=== PATIENT | female | born 1965 | race Caucasian/White ===

== ENCOUNTER → 2017-09-08 12:20 | Outpatient (CLI) | payer MEDICARE, MEDICAID, SELFPAY ==
--- NOTE | 2017-09-08 12:25 | RAD_ITS ---
STUDY: X-RAY - CERVICAL SPINE REASON FOR EXAM: Female, 51 years old. Neck pain TECHNIQUE: 3 view(s) of the cervical spine were obtained. COMPARISON: None FINDINGS: Normal anterior atlantoaxial articulation. Normal odontoid process. Normal cervical lordosis. Normal vertebral bodies and endplates. Normal disc space heights. Normal visualized intervertebral neuroforamina. The soft tissue structures are unremarkable. RAD/Cerv Spine 2 or 3 Views IMPRESSION: Normal x-ray examination of the visualized cervical spine. Electronically Signed: Will Strong MD at 7:18 EDT , Service support ,
== END ==
PROVIDERS: Family Provider Internal Medicine; PCP Internal Medicine; Visit Provider Anesthesiology Pain Medicine
DX: M54.2 Cervicalgia (principal)
CPT/HCPCS: 72040

== ENCOUNTER → 2018-03-24 11:50 | Outpatient (CLI) | payer MEDICARE, MEDICAID, SELFPAY ==
[2018-03-24 12:34] LABS: Amphetamine Urine VISTA NEGATIVE (<1000 ng/mL); Barbiturate Urine VISTA NEGATIVE (< 200 ng/mL); Benzodiazepine Urine VISTA NEGATIVE (< 200 ng/mL); Cocaine Urine VISTA NEGATIVE (< 300 ng/mL); Ecstacy Urine VISTA POSITIVE (< 500 ng/mL); Methadone Urine VISTA NEGATIVE (< 300 ng/mL); PCP Urine VISTA NEGATIVE (< 25 ng/mL); THC Urine VISTA NEGATIVE (< 50 ng/mL); Vista UDS pH Range 6
== END ==
PROVIDERS: Family Provider Internal Medicine; PCP Internal Medicine; Referring Provider Anesthesiology Pain Medicine; Visit Provider Anesthesiology Pain Medicine
DX: F11.20 Opioid dependence, uncomplicated (principal)
CPT/HCPCS: 80307

== ENCOUNTER → 2018-06-15 09:33 | Outpatient (CLI) | payer MEDICARE, MEDICAID, SELFPAY ==
[2018-06-15 10:42] LABS: Amphetamine Urine VISTA NEGATIVE (<1000 ng/mL); Barbiturate Urine VISTA NEGATIVE (< 200 ng/mL); Benzodiazepine Urine VISTA NEGATIVE (< 200 ng/mL); Cocaine Urine VISTA NEGATIVE (< 300 ng/mL); Ecstacy Urine VISTA POSITIVE (< 500 ng/mL); Methadone Urine VISTA NEGATIVE (< 300 ng/mL); PCP Urine VISTA NEGATIVE (< 25 ng/mL); THC Urine VISTA NEGATIVE (< 50 ng/mL); Vista UDS pH Range 6
--- OUTSIDE RECORDS SUMMARY | 2018-09-16 21:54 | XMS RPT_ITS ---
:1965 Author Organization OHIP Care Team Providers Name Role Phone Mohsen Majano Attending Unavailable Basali, Ayman Referring Unavailable ZARRABI, ADORE Primary Care Unavailable Basali, Ayman Attending Unavailable Basali, Ayman Referring Unavailable ZARRABI, ADORE Primary Care Unavailable Basali, Ayman Attending Unavailable Basali, Ayman Referring Unavailable ZARRABI, ADORE Primary Care Unavailable Zarrabi, Adore Admitting Unavailable Zarrabi, Adore Attending Unavailable Zarrabi, Adore Primary Care Unavailable Zarrabi, Adore Attending Unavailable Zarrabi, Adore Primary Care Unavailable Zarrabi, Adore Attending Unavailable Zarrabi, Adore Primary Care Unavailable Zarrabi, Adore Admitting Unavailable Zarrabi, Adore Attending Unavailable Zarrabi, Adore Primary Care Unavailable Zarrabi, Adore Admitting Unavailable Zarrabi, Adore Attending Unavailable Zarrabi, Adore Primary Care Unavailable Zarrabi, Adore Attending Unavailable Zarrabi, Adore Primary Care Unavailable Zarrabi, Adore Attending Unavailable Zarrabi, Adore Primary Care Unavailable Zarrabi, Adore Attending Unavailable Zarrabi, Adore Primary Care Unavailable Zarrabi, Adore Admitting Unavailable Zarrabi, Adore Attending Unavailable Zarrabi, Adore Primary Care Unavailable Zarrabi, Adore Attending Unavailable Zarrabi, Adore Primary Care Unavailable Zarrabi, Adore Attending Unavailable Zarrabi, Adore Primary Care Unavailable Zarrabi, Adore Attending Unavailable Zarrabi, Adore Primary Care Unavailable Zarrabi, Adore Attending Unavailable Zarrabi, Adore Primary Care Unavailable Zarrabi, Adore Attending Unavailable Zarrabi, Adore Primary Care Unavailable Zarrabi, Adore Admitting Unavailable Zarrabi, Adore Attending Unavailable Zarrabi, Adore Primary Care Unavailable Zarrabi, Adore Attending Unavailable Zarrabi, Adore Primary Care Unavailable Zarrabi, Adore Admitting Unavailable Zarrabi, Adore Attending Unavailable Zarrabi, Adore Primary Care Unavailable Zarrabi, Adore Admitting Unavailable Zarrabi, Adore Attending Unavailable Zarrabi, Adore Primary Care Unavailable Zarrabi, Adore Attending Unavailable Zarrabi, Adore Primary Care Unavailable Zarrabi, Adore Admitting Unavailable Zarrabi, Adore Attending Unavailable Zarrabi, Adore Primary Care Unavailable Zarrabi, Adore Attending Unavailable Zarrabi, Adore Primary Care Unavailable PROBLEMS PROBLEMS DATE TYPE CONDITION / CODE ATTENDING STATUS SOURCE 06/15/2018 Unknown F11.20 - Opioid Basali, Ayman Active [place] dependence, Community uncomplicated / Hospital F11.20(ICD-10) Repository PROCEDURES PROCEDURES No Procedure Records FoundRESULTS RESULTS URINE DRUG SCREEN Collected: 06/15/2018 Status: F Source: BLESSING (VISTA) 9:39 [facility] Order Comment: List of Drugs Taken or Suspected? UNK TYPE CODE TESTS RESULT OUT OF RANGE REFERENCE UNITS LAB L505.0075 TO BE Normal CONFIRMED Result Comment: CONFIRMATORY TESTING FOR ALL POSITIVE URINE DRUG SCREEN RESULTS WILL ONLY BE SENT OUT UPON PHYSICIAN ORDER. VISTA Urine Drug Screen methods provide only preliminary analytical test results. A more specific alternate chemical method must be used in order to obtain a confirmed analytical result. Gas chromatography/mass spectrometery (GC/MS) is the preferred confirmatory method. Clinical consideration and professional judgement should be applied to any drug of abuse test result, particularly when preliminary positive results are used. URINE TCA TESTING MUST BE ORDERED SEPARATELY. USE TEST MNEMONIC: [facility] LAB L505.5005 VISTA UDS PH 6 Normal LAB L505.5015 <1000 ng/mL AMPHETAMINES Normal NEGATIVE LAB L505.5025 < 200 ng/mL BARBITIURATES Normal NEGATIVE LAB L505.5035 < 200 ng/mL BENZODIAZIPINE Normal NEGATIVE LAB L505.5045 < 300 ng/mL COCAINE Normal NEGATIVE LAB L505.5055 < 500 High ng/mL ECSTACY POSITIVE LAB L505.5065 < 300 ng/mL METHADONE Normal NEGATIVE LAB L505.5075 < 300 High ng/mL OPIATES POSITIVE LAB L505.5085 < 25 ng/mL PCP Normal NEGATIVE LAB L505.5095 < 50 ng/mL THC Normal NEGATIVE Performed By: #### L505.5000 #### [facility] [address] [place], [address] MISCELLANEOUS LAB Collected: 06/15/2018 Status: F Source: [place] PROCEDURE 9:39 AM [facility] REPOSITORY Order Comment: Test(s) Ordered: [id number] URINE DRUG SCREEN TYPE CODE TESTS RESULT OUT OF RANGE REFERENCE UNITS LAB L801.1541 Normal [facility] LAB TEST Result Comment: [id number] 6+OXYCODONE-BUND (ng/mL) DRUG RESULT SCREEN CUTOFF ____ Amphetamines,Urine Negative ng/mL 1000 Amphetamine test includes Amphetamine and Methamphetamine. Barbiturates Negative ng/mL 200 Benzodiazepines Negative ng/mL 200 Cannabinoid Negative ng/mL 20 Cocaine (Metab) Negative ng/mL 300 Opiates Negative ng/mL 300 Opiates test includes Codeine, Morphine, Hydromorphone, Hydrocodone. Oxycodone/Oxymorphone,Urine Positive ng/mL 300 Test includes Oxydodone and Oxymorphone. Oxycodone Positive Oxycodone GC/MS 562 ng/mL 300 Oxymorphone Positive Oxymorphone GC/MS 1311 ng/mL 300 TESTING PERFORMED AT [facility]. ORIGINAL REPORT ON FILE IN LAB CONTAINS ADDITIONAL TEST SITE INFORMATION. Performed By: #### L801.1541 #### [facility] [address] [place], [place], [address] CMP Collected: 05/12/2018 Status: F Source: EPISCOPALIAN 11:27 AM [facility] REPOSITORY TYPE CODE TESTS RESULT OUT OF RANGE REFERENCE UNITS LAB 07017450(L 10-20 mEq/L OINC) AGAP Normal 11 LAB 60464975(L 70-99 mg/dL OINC) Glucose Normal Lvl 99 LAB 41212067(L 6-23 mg/dL OINC) BUN Normal 14 LAB 1265669(LO 0.5-1.1 mg/dL INC) Normal Creatinine 0.6 LAB 01161114(L 8.6-10.3 mg/dL OINC) Calcium Normal Lvl 9.3 LAB 77579413(L 136-145 mEq/L OINC) Sodium Normal Lvl 139 LAB 53053197(L 3.5-5.3 mEq/L OINC) Normal Potassium Lvl 3.6 LAB 69532367(L 98-107 mEq/L OINC) High Chloride 108 LAB 15185837(L 21.0-32.0 mEq/L OINC) CO2 Normal 24.0 LAB 24991663(L 33-110 Int._Unit/ OINC) L Alk Phos Normal 98 LAB 53936345(L 0.0-1.2 mg/dL OINC) Bili Normal Total 0.4 LAB 95904627(L 3.4-5.0 gm/dL OINC) Albumin Normal Lvl 4.2 LAB 96640551(L 6.4-8.2 gm/dL OINC) Total Normal Protein 7.3 LAB 41893234(L 7-45 Int._Unit/ OINC) L ALT Normal 16 LAB 21804628(L 9-39 Int._Unit/ OINC) L AST Normal 14 LAB 66901077(L 5.4-30.0 ratio OINC) Normal BUN/Creat Ratio 23.3 LAB 08238526(L 2.0-4.0 G/DL OINC) Globulin Normal 3.0 LAB 04223394(L 1.1-1.9 ratio OINC) A/G Normal Ratio 1.4 Performed By: #### [id number] #### [facility] [address] [place] [address] EGFR Collected: 05/12/2018 Status: F Source: EPISCOPALIAN 11:27 AM [facility] REPOSITORY Order Comment: Order added by Discern Expert. TYPE CODE TESTS RESULT OUT OF RANGE REFERENCE UNITS LAB 01299029(LO mL/min/1.73 INC) m2 Normal eGFR >60 LAB 03228701(LO mL/min/1.73 INC) m2 Normal eGFR AA >60 Performed By: #### [id number] #### [facility] [place] [address] LIPID PROFILE Collected: 05/12/2018 Status: F Source: EPISCOPALIAN 11:27 [facility] REPOSITORY TYPE CODE TESTS RESULT OUT OF RANGE REFERENCE UNITS LAB 90539245(LO 0-199 mg/dL INC) Normal Chol 150 Result Comment: TOTAL CHOLEESTEROL: <200 NORMAL 200 - 239 BORDERLINE HIGH >240 HIGH LAB 44201683(LOINC) 40-60 mg/dL Low HDL 34 LAB 59370768(LOINC) 0-130 mg/dL Normal LDL 94 Result Comment: <100 OPTIMAL 100-129 NEAR / ABOVE OPTIMAL 130-159 BORDERLINE HIGH 160-189 HIGH >190 VERY HIGH CALC LDL NOT VALID WHEN TRIGLYCERIDE IS >400 MG/DL LAB 40312395(LOINC) 0-149 mg/dL Normal Trig 109 Result Comment: AGE DESIRABLE BORDERLINE HIGH 91 D - 9 Y 0 - 74 75 - 99 > 100 10 - 19 Y 0 - 89 90 - 129 > 130 20 -24 Y 0 - 114 115 - 149 > 150 > 25 0 - 149 150 - 199 200 - 499 LAB 85001335(LOINC) 0-40 mg/dL Normal VLDL 22 Performed By: #### [id number] #### [facility] [employer] [address] [place] [address] HGBA1C Collected: 05/12/2018 Status: F Source: EPISCOPALIAN 11:27 AM [facility] REPOSITORY TYPE CODE TESTS RESULT OUT OF RANGE REFERENCE UNITS LAB 941394777( 4.0-6.3 % LOINC) Normal Hemoglobin A1c 5.9 Performed By: #### [id number] #### [facility] Chemistry Manual Subsection [address] [place] [address] Observed: 04/30/2018 Status: F Source: EPISCOPALIAN C URINE 4:10 PM [facility] REPOSITORY Final Report: Light growth of Normal skin jonas isolated Performed By: #### [id number] #### [facility] Microbiology Subsection [address] [place] [address] URINE DRUG SCREEN Collected: 03/24/2018 Status: F Source: BLESSING (VISTA) 12:03 PM [facility] REPOSITORY Order Comment: Comments: [id number] urine tox run lowest test. List of Drugs Taken or Suspected? UNK TYPE CODE TESTS RESULT OUT OF RANGE REFERENCE UNITS LAB L505.0075 TO BE Normal CONFIRMED Result Comment: CONFIRMATORY TESTING FOR ALL POSITIVE URINE DRUG SCREEN RESULTS WILL ONLY BE SENT OUT UPON PHYSICIAN ORDER. VISTA Urine Drug Screen methods provide only preliminary analytical test results. A more specific alternate chemical method must be used in order to obtain a confirmed analytical result. Gas chromatography/mass spectrometery (GC/MS) is the preferred confirmatory method. Clinical consideration and professional judgement should be applied to any drug of abuse test result, particularly when preliminary positive results are used. URINE TCA TESTING MUST BE ORDERED SEPARATELY. USE TEST MNEMONIC: [facility] LAB L505.5005 VISTA UDS PH 6 Normal LAB L505.5015 <1000 ng/mL AMPHETAMINES Normal NEGATIVE LAB L505.5025 < 200 ng/mL BARBITIURATES Normal NEGATIVE LAB L505.5035 < 200 ng/mL BENZODIAZIPINE Normal NEGATIVE LAB L505.5045 < 300 ng/mL COCAINE Normal NEGATIVE LAB L505.5055 < 500 High ng/mL ECSTACY POSITIVE LAB L505.5065 < 300 ng/mL METHADONE Normal NEGATIVE LAB L505.5075 < 300 ng/mL OPIATES Normal NEGATIVE LAB L505.5085 < 25 ng/mL PCP Normal NEGATIVE LAB L505.5095 < 50 ng/mL THC Normal NEGATIVE Performed By: #### L505.5000 #### [facility] [address] [place], [address] MISCELLANEOUS LAB Collected: 03/24/2018 Status: F Source: BLESSING PROCEDURE 12:03 PM [facility] REPOSITORY Order Comment: Comments: [id number] urine tox run lowest test. Test(s) Ordered: [id number] urine tox run lowest test. TYPE CODE TESTS RESULT OUT OF RANGE REFERENCE UNITS LAB L801.1541 Normal [facility] LAB TEST Result Comment: TEST RESULT UNITS REFERENCE INTERVAL 921320 6+OXYCODONE-BUND (ng/mL) DRUG RESULT SCREEN CUTOFF ____ Amphetamines,Urine Negative ng/mL 1000 Amphetamine test includes Amphetamine and Methamphetamine. Barbiturates Negative ng/mL 200 Benzodiazepines Negative ng/mL 200 Cannabinoid Negative ng/mL 20 Cocaine (Metab) Negative ng/mL 300 Opiates Negative ng/mL 300 Opiates test includes Codeine, Morphine, Hydromorphone, Hydrocodone. Oxycodone/Oxymorphone,Urine Negative ng/mL 300 Test includes Oxydodone and Oxymorphone. TESTING PERFORMED AT [facility]. ORIGINAL REPORT ON FILE IN LAB CONTAINS ADDITIONAL TEST SITE INFORMATION. Performed By: #### L801.1541 #### [facility] [address] [place], [address] US ABDOMEN COMPLETE Observed: 12/05/2017 Status: F Source: EPISCOPALIAN 8:53 AM [facility] REPOSITORY Exam Date/Time: 12/05/2017 09:34 EDT Reason for Exam: ABD PAIN;Abdominal pain Report STUDY: US Abdomen Complete; 12/05/2017 9:34 am INDICATION: 52 y/o F with Abdominal pain. COMPARISON: 10/27/2012 ACCESSION NUMBER(S): [id number] ORDERING CLINICIAN: Adore Apple TECHNIQUE: Routine ultrasound of the abdomen was performed. Static images were obtained for remote interpretation. FINDINGS: LIVER: The liver is not enlarged, smooth in contour and homogeneous in echotexture. BILE DUCTS: Intrahepatic ducts: Non-dilated Common bile duct diameter: 1 mm GALLBLADDER: Cholecystectomy has been performed. PANCREAS: Visualized portions are unremarkable. SPLEEN: Craniocaudal length: 13 cm, Within normal limits of size for age. No focal splenic lesion. RIGHT KIDNEY: Craniocaudal length: 9.8 cm, Within normal limits of size for age. No hydronephrosis, hydroureter or focal renal lesion. LEFT KIDNEY: Craniocaudal length: 10.9 cm, Within normal limits of size for age. No hydronephrosis, hydroureter or focal renal lesion. ABDOMINAL AORTA AND IVC: Visualized portions are unremarkable. PERITONEAL FLUID: None. Exam Date/Time: 12/05/2017 09:34 EDT Report IMPRESSION: 1. Cholecystectomy. 2. Dilated common bile duct, measuring up to 1 cm, likely secondary to cholecystectomy. No intrahepatic biliary ductal dilatation. FINAL REPORT Dictated: 12/05/2017 9:54 am Adriana Lawrence MD Signed (Electronic Signature): 12/05/2017 9:54 am Signed by: Adriana Lawrence MD Technologist: JAGRUTI SMITH THYROID Observed: 10/28/2017 Status: F Source: EPISCOPALIAN 9:27 AM [facility] REPOSITORY Exam Date/Time: 10/28/2017 09:50 EDT Reason for Exam: THYROMEGALY;Other (please specify) Report THYROID ULTRASOUND: HISTORY: Thyromegaly. COMPARISON: 08/21/2015. FINDINGS: RIGHT LOBE: Size-6.1 x 1.5 x 1.1 cm. On the last examination of 08/21/2015 it measured 5.3 x 1.3 x 1.7 cm. A nodule is seen in the inferior pole, which is solid, measuring 3 x 2 x 2 mm, unchanged from the previous examination. Left lobe: Size-6.5 x 2.1 x 1.3 cm, with a solid nodule in the superior pole, measuring 6 x 5 x 3 mm. On the last examination, this lobe measured 5.5 x 1.6 x 1.8 cm. The echogenicity is otherwise normal in both lobes. IMPRESSION: Mild thyromegaly. Slight increase in the length of both lobes since the last examination. FINAL REPORT Dictated: 10/28/2017 5:30 pm Shady Cheng MD Signed (Electronic Signature): 10/28/2017 5:30 pm Signed by: Shady Cheng MD Technologist: BS Observed: 09/10/2017 Status: F Source: EPISCOPALIAN C URINE 6:14 PM [facility] REPOSITORY Final Report: Normal skin jonas isolated Performed By: #### [id number] #### [facility] Microbiology Subsection [address] [place] [address] CERV SPINE 2 OR 3 Observed: 09/08/2017 Status: F Source: ATHENS VIEWS 12:25 PM [facility] REPOSITORY [facility] Imaging Services [address] [place] [address] Cerv Spine 2 or 3 Views MR#: [id number] Acct: [id number] Name: VIKI MORGAN Rep #: [id number] : 1965 F 51 From: Will Strong PCP: ADORE APPLE Status: REG CLI Study: Cerv Spine 2 or 3 Views Date of Exam: 09/08/17 Exam# [id number] Ordering Dr: Mohsen Majano MD STUDY: X-RAY - CERVICAL SPINE REASON FOR EXAM: Female, 51 years old. Neck pain TECHNIQUE: 3 view(s) of the cervical spine were obtained. COMPARISON: None FINDINGS: Normal anterior atlantoaxial articulation. Normal odontoid process. Normal cervical lordosis. Normal vertebral bodies and endplates. Normal disc space heights. Normal visualized intervertebral neuroforamina. The soft tissue structures are unremarkable. RAD/Cerv Spine 2 or 3 Views IMPRESSION: Normal x-ray examination of the visualized cervical spine. Electronically Signed: Will Strong MD at 7:18 EDT , Service support , CC: Mohsen Majano MD; ADORE APPLE Pawn Shop Keeper: Signed CT HEAD OR BRAIN W/O Observed: 09/04/2017 Status: F Source: EPISCOPALIAN CONTRAST 9:22 AM [facility] REPOSITORY Exam Date/Time: 09/04/2017 09:27 EST Reason for Exam: POOR MEMORY HEADACHE PALPITATIONS;Other (please specify) Report EXAM: CT HEAD OR BRAIN WITHOUT CONTRAST CLINICAL STATEMENT: Memory loss and headache. COMPARISON: None. TECHNIQUE: Axial CT examination of the head without IV contrast. Additional coronal and sagittal reformations were obtained. Dose reduction techniques were achieved by using automated exposure control and/or adjustment of mA and/or kV according to patient size and/or use of iterative reconstruction technique. FINDINGS: Ventricular system is symmetrical without dilatation. No acute intracranial hemorrhage, midline shift, mass effect, or acute parenchymal density change is seen. There is diffuse primarily frontal region cortical atrophy noted. Calvarium appears intact. Portions of the sinuses and mastoid air cells included are generally clear. There is a right mid level ethmoid area of focal thickening or mucous retention cyst of 6 mm noted. IMPRESSION: No acute noncontrast CT brain abnormality is identified. There is diffuse cortical atrophic change noted. Calvarium appears intact. FINAL REPORT Dictated: 09/04/2017 12:24 pm Nathan Vázquez DO Signed (Electronic Signature): 09/04/2017 12:24 pm Signed by: Nathan Vázquez DO Technologist: [employer]RLexi ALLERGIES ALLERGIES DATE TYPE / NAME / CODE REACTION SEVERITY SOURCE CODE 08/27/2016 Drug Penicillins/F0010 Anaphylaxis MO [place] Allergy/41 02991(RXNORM) [facility] [id number]([facility]) Repository 08/27/2016 Drug potassium/X305055 hives/nausea/vomit SV [place] Allergy/41 763(RXNORM) [facility] 5139682([facility]) Repository 08/27/2016 Drug iron/N328414647(R Nausea/Vom/Diarrhe Unknown [place] Allergy/41 XNORM) a Community 3513605([facility]) Repository 08/27/2016 Drug ketorolac/Q139786 hives/nausea/vomit Unknown [place] Allergy/41 812(RXNORM) ing Community 7238298([facility]) Repository Drug/99611 aspirin 1147785960 [facility]) System Repository Drug/10214 Bee Stings ANAPHYLACTIC Severe [facility]3([facility]) System Repository Drug/66265 Contrast Dye 925009411 [facility]) System Repository Drug/56220 Tomatoes 789462037 [facility]3([facility]) System Repository Drug/39514 penicillins severe Severe [facility]) System Repository Drug/43398 predniSONE 620029679 [facility]) System Repository Drug/09510 Toradol Rash [facility]) System Repository Drug/06183 Lodine 626465665 [facility]) System Repository Drug/00424 Imitrex 4070985819 [facility]) System Repository Drug/44528 Ultram 5658726304 [facility]) System Repository Drug/62125 Iron Rash Moderate [facility]) System Repository Drug/43520 Medrol Dosepak swelling, rash [facility]) System Repository Drug/77122 Lexapro 258142820 [facility]) System Repository Drug/00632 Excedrin Migraine 306865188 [facility] Repository Drug/53175 potassium sulfate Rash Mild [facility]) System Repository ENCOUNTERS ENCOUNTERS ADMIT/DISCHARGE ACCOUNT NUMBER ADMITTING ENCOUNTER LOCATION SOURCE CLASS 07/08/2018 [id number] Ambulatory [facility] Internal [facility] System ding:[facility] Repository IM 07/08/2018/07/08/19 [id number] [place], Ambulatory [address] ding:[facility] Repository IMRoom: Room 1 06/15/2018 [id number] Ambulatory [facility] ding:LAB Repository 06/01/2018 [id number] Ambulatory [facility] ding:[facility] Repository IM 06/01/2018/06/01/20 [id number] Ambulatory [address] ding:[facility] Repository IMRoom: Room 1 05/12/2018/05/12/20 [id number] [facility] [address] ding:.Lab [facility] Repository 05/12/2018 [id number] Ambulatory [address] [place] [address] Repository 04/30/2018/04/30/20 [id number] [facility], [address] ding:.Lab [facility] System Repository 04/30/2018/04/30/20 [id number] [facility] [address] ding:[facility] Repository IMRoom: Room 3 04/30/2018 [id number] Ambulatory [address] [place] [address] Repository 04/16/2018/04/16/20 [id number] Ambulatory [address] ding:[facility] Repository IM 04/15/2018 [id number] Ambulatory [facility] ding:[facility] Repository IM 03/24/2018 [id number] Ambulatory [facility] ding:LAB Repository 03/17/2018/03/17/20 [id number] Ambulatory [address] ding:[facility] Repository IMRoom: Room 1 02/05/2018/02/06/20 [id number] Ambulatory [address] ding:[facility] Repository IMRoom: Room 1 12/25/2017/12/26/19 [id number] Ambulatory [address] ding:[facility] Repository IMRoom: Room 1 12/18/2017/12/19/19 [id number] Ambulatory [address] ding:[facility] Repository IM 12/05/2017/12/06/[id number] ding:[facility] Repository 12/05/2017 [id number] Ambulatory [address] [place] [address] Repository 11/19/2017/11/20/19 [id number] Ambulatory [address] ding:[facility] Repository IMRoom: Room 1 10/28/2017/10/29/[id number] ding:.[facility] System Repository 10/22/2017/10/23/19 [id number] Ambulatory [address] ding:[facility] Repository IMRoom: Room 2 10/07/2017/10/08/19 [id number] Ambulatory [address] ding:[facility] Repository IM 09/10/2017/09/11/19 [id number] [facility], [address] ding:[facility] Repository 09/10/2017/09/11/19 [id number] Ambulatory [address] ding:[facility] Repository IMRoom: Room 1 09/08/2017 [id number] Ambulatory [facility] ding:RAD Repository 09/04/2017/09/05/[id number] ding:[facility] System Repository PAYERS PAYERS ENCOUNTER GUARANTOR PAYER SUBSCRIBER SOURCE 07/08/2018 VIKI Parker Primary VIKI BAYOB: Insurance:JERAD BAYOB: [facility] [id number] [facility] [id number] MED[address] Repository [address] Number: Effective [address] [address]Qvj: Date:2018-07-0860751-5746Kby: [id number] (HP) Name:CD:[id number] (HP)Tel: (000) [address], [place] 000[address] (WP) [address]OW: 07/08/2018 Secondary VIKI Keith [facility] Insurance:1500 SIMONSDOB: [facility] MEDICAID [id number] System PRIMARYPolicy Number: [facility] Repository Effective [address] Date:2018-07-0831113-9064Oui: [id number] Name:CD:[id number] O (HP)Tel: (000) [address], [place] 000[address] (WP) [address]XB: 07/08/2018 [facility] Primary [facility] SIMONSDOB: Insurance:ANTHEM SIMONSDOB: [facility] MEDIBLUE [id number] System [facility] Repository [address] Number: Effective [address] [address]Snf: Date:2018-07-02 [address]Ttf: [id number] (HP) Name:CD:[id number] (HP)Tel: (000) [address] [place] 000[address] (WP) [address]PR: 07/08/2018 Secondary [facility] Insurance:1500 SIMONSDOB: [facility] MEDICAID [id number] System PRIMARYPolicy Number: [facility] Repository Effective [address] Date:2018-07-02 [address]Vaa: [id number] Name:CD:[id number] O (HP)Tel: (000) [address], [place] 000[address] ([place]) [address]TI: 06/15/2018 VIKI Parker Primary VIKI Funk [id number] Insurance:ANTHEM SIMONSDOB: Community [address] MEDICARE SENIOR [id number] [address]Jfb: (531) ADVANTAPolicy Number: Repository [phone] () [id number] Date:[id number] [id number] [place] [address]BZ: 06/15/2018 Secondary VIKI Funk Insurance:MEDICAIDPol SIMONSDOB: Community icy Number: [id number] [id number] Repository Date:2018-06-15 06/15/2018 Tertiary NOT GIVENUNK [place] Insurance:SELF PAY [facility] Number: Effective Repository Date:2018-06-15 06/01/2018 VIKI Parker Primary VIKI Parrish SIMONSDOB: Insurance:ANTHEM SIMONSDOB: [facility] MEDIBLUE [id number] System [facility] Repository [address] Number: Effective [address] [address]Rzh: Date:2018-06-01 [address]Tdx: 8103-31-27Enkp () Name:CD:[id number] ()Tel: (000) [address], [place] 000[address]0000 (WP) [address]XF: 06/01/2018 Secondary VIKI Parrish Insurance:1500 SIMONSDOB: [facility] MEDICAID [id number] System [facility] Number: [address] Repository Effective [address] Date:2018-06-01 [address]Aqv: 1072-61-95Lzit Name:CD:[id number] O (HP)Tel: (000) [address] 000[address] (WP) [address]KY: 06/01/2018 VIKI Parker Primary VIKI Parrish SIMONSDOB: Insurance:ANTHEM SIMONSDOB: [facility] [id number] System [facility] [address] Repository [address] Number: Effective [address] [address]Rgm: Date:2018-04-3059885-2402Kvr: 8328-11-52Ssap (HP) Name:CD:[id number] (HP)Tel: (000) [address]uf[address] [place] 000-0000 (WP) [address]QG: 06/01/2018 Secondary VIKI Parrish Insurance:1500 SIMONSDOB: [facility] MEDICAID [id number] [facility] Number: [address] Repository Effective [address] Date:2018-04-3099854-1445Whl: 9037-69-16Pkrb Name:CD:[id number] O (HP)Tel: (000) [address], [place] 000-0000 (WP) [address]JQ: 05/12/2018 VIKI Parker Primary VIKI VOGTSDOB: Insurance:[facility] HospitalSD[facility]: [facility] y Number: Effective [id number] System [facility] Date:2018-05-12 - [address] Repository [address] 1342-58-81Oljj [address] [address]Czv: Name:CD:[id number] [address] [address]Pzx: 885010XOWKWFD [place] (HP) [address]SQ: (601) (HP) 000-0000 (WP) 05/12/2018 VIKI VOGTSDOB: Primary VIKI VOGTSDOB: [place] Insurance:AnthemPolic [id number] [facility] y Number: [address] Repository [address] [id number] [address], [place] [id number]: Date:Plan Name:Health [id number]: (HP) (HP) 05/12/2018 Secondary VIKI BAYOB: [place] Insurance:[facility] [id number] [facility] y Number: [address] Repository [id number] [address] Date:Plan Name:Health [id number]: (HP) 04/30/2018 VIKI Parker Primary VIKI VOGTSDOB: [facility] y Number: Effective [id number] System [facility] Date:2018-04-30 - [address] Repository [address] 5613-86-01Pjou [address] [address]Rrw: Name:CD:[id number] [facility] [address]Wcb: [id number] [place] [address] (HP) 976[address]XI: 404 (HP) (WP) 04/30/2018 Secondary VIKI Parrish Insurance:MedicaidPol SIMONSDOB: [facility] icy Number: Effective [id number] System Date:2018-04-30 - [address] Repository 0083-65-69Kgkz [address] Name:CD:[id number] [address]Xco: [address] [place] (HP)Tel: (566) [phone]: (WP) [phone] 04/30/2018 VIKI Parker Primary VIKI Parrish SIMONSDOB: Insurance:ANTH SIMONSDOB: [facility] MEDIBLUE [id number] [address] MED[address] Repository [address] Number: Effective [address] [address]Bik: Date:2018-04-30 [address]Dae: 8932-18-23Vqdp (HP) Name:CD:[id number] ()Tel: (000) [address], [place] 000-0000 (WP) [address]NG: 04/30/2018 Secondary VIKI Parrish Insurance:[address] [place], [place] [address]OB: [facility] MEDICAID [id number] System PRIMARYPolicy Number: [address] Repository Effective [address] Date:2018-04-30 [address]Egw: 7950-03-80Zsth Name:CD:[id number] O ()Tel: (000) [address], [place] 000-0000 (WP) [address]BJ: 04/30/2018 VIKI BAYOB: Primary VIKISARAH BAYOB: [place] [facility] [id number] Hospitals [address] y Number: [address] Repository [address] [id number] [address] [id number]: Date:Plan Name:Health [id number]: (HP) (HP) 04/30/2018 Secondary VIKI BAYOB: [place] Insurance:[facility] [id number] [facility] y Number: [address] Repository [id number] [address] Date:Plan Name:Health [id number]: (HP) 04/30/2018 Tertiary VIKI BAYOB: [place] Insurance:MedicaidPol [id number] [facility] icy Number: [address] Repository [id number] [address] Date:Plan [id number]: Name:Health [address], [place] (HP) [address]KA: 04/16/2018 VIKI Parker Primary VIKI Parrish SIMONSDOB: Insurance:1500 SIMONSDOB: [facility] MEDICARE [id number] System [facility] PRIMARYPolicy Number: [address] Repository [address] Effective [address] [address]Ibi: Date:2018-03-1762818-2435Hzj: 1392-20-39Zoyk (HP) Name:CD:[id number] O (HP)Tel: (000) [address]FWVVLBUTD, 000-0000 (WP) [place] [address]OV: 04/16/2018 Secondary VIKI Parrish Insurance:1500 SIMONSDOB: [facility] MEDICAID [id number] System PRIMARYPolicy Number: [address] Repository Effective [address] Date:2018-03-1793351-5428Uut: 3092-35-61Lkes Name:CD:[id number] O (HP)Tel: (000) [address], [place] 000-0000 (WP) [address]MS: 04/15/2018 VIKI Parker Primary VIKI Parrish SIMONSDOB: Insurance:1500 SIMONSDOB: [facility] MEDICARE [id number] System [facility] PRIMARYPolicy Number: [address] Repository [address] Effective [address] [address]Ecl: Date:2018-04-15 [address]Ucn: 6913-64-33Yrva (HP) Name:CD:[id number] O (HP)Tel: (000) [address]VRIGNFSDC, 000-0000 (WP) [place] [address]EP: 04/15/2018 Secondary VIKI Parrish Insurance:1500 SIMONSDOB: [facility] MEDICAID [id number] System PRIMARYPolicy Number: [address] Repository Effective [address] Date:2018-04-15 [address]Mrk: 4418-70-29Uhjy Name:CD:[id number] O (HP)Tel: (000) [address], [place] 000-0000 (WP) [address]NT: 03/24/2018 VIKI Parker Primary VIKI Funk [id number] Insurance:ANTHEM SIMONSDOB: [place] [address] MEDICARE [facility] [id number] Hospital [address]Hne: (567) ADVANTAPolicy Number: Repository [phone] (HP) [id number] Date:2103-69-78TQ [address]KKWMPPI, [place] [address]GS: 03/24/2018 Secondary VIKI Funk Insurance:MEDICAIDPol SIMONSDOB: Community icy Number: [id number] [id number] Repository Date:2018-03-24 03/24/2018 Tertiary NOT [place]IV[place]K [place] Insurance:SELF PAY [facility] Number: Effective Repository Date:2018-03-24 03/17/2018 VIKI Parker Primary VIKI Parrish SIMONSDOB: Insurance:1500 SIMONSDOB: [facility] MEDICARE [id number] System [facility] PRIMARYPolicy Number: [address] Repository [address] Effective [address] [address]Nat: Date:2018-02-0541026-6476Zzd: 2032-21-70Jggo (HP) Name:CD:[id number] O (HP)Tel: (000) [address]TGEQUZEPU, 000-0000 (WP) [place] [address]OU: 03/17/2018 Secondary VIKI Parrish Insurance:1500 SIMONSDOB: [facility] MEDICAID [id number] System PRIMARYPolicy Number: [address] Repository Effective [address] Date:2018-02-05 [address]Hmw: 8424-01-98Ksyf Name:CD:[id number] O (HP)Tel: (000) [address], [place] 000-0000 (WP) [address]YS: 02/05/2018 VIKI Parker [facility] VIKI Parrish SIMONSDOB: Insurance:1500 SIMONSDOB: [facility] MEDICARE [id number] System [facility] PRIMARYPolicy Number: [address] Repository [address] Effective [address] [address]Mpx: Date:2017-12-2537222-6284Qhr: 6652-19-29Zukh (HP) Name:CD:[id number] O (HP)Tel: (000) [address]TZUIMOMKR, 000-0000 (WP) [place] [address]TN: 02/05/2018 Secondary VIKISARAH Parrish Insurance:1500 SIMONSDOB: [facility] MEDICAID [id number] System PRIMARYPolicy Number: [address] Repository Effective [address] Date:2017-12-2513088-5196Fwd: 8965-48-32Omlj Name:CD:[id number] O (HP)Tel: (000) [address], [place] 000-0000 (WP) [address]UP: 12/25/2017 VIKI M [facility] VIKI Parrish SIMONSDOB: Insurance:1500 SIMONSDOB: [facility] MEDICARE [id number] System [facility] PRIMARYPolicy Number: [address] Repository [address] Effective [address] [address]Hcx: Date:2017-12-2538650-3556Hdg: 2560-55-85Nrzi (HP) Name:CD:[id number] O (HP)Tel: (000) [address]BCAQWVRPO, 000-0000 (WP) [place] [address]TR: 12/25/2017 Secondary VIKI Parrish Insurance:1500 SIMONSDOB: [facility] MEDICAID [id number] System PRIMARYPolicy Number[facility] Repository Effective [address] Date:2017-12-2587111-4168Wed: 2044-22-92Ldkj Name:CD:[id number] O (HP)Tel: (000) [address], [place] 000-0000 (WP) [address]ZZ: 12/18/2017 VIKI Parker Primary VIKI Parrish SIMONSDOB: Insurance:1500 SIMONSDOB: [facility] MEDICARE [id number] System [address] PRIMARYPolicy Number: [address] Repository [address] Effective [address] [address]Vyo: Date:2017-11-1947113-9597Iap: 4500-51-38Dobo (HP) Name:CD:[id number] O (HP)Tel: (000) [address]GNQMGMYNB, 000-0000 (WP) [place] [address]EV: 12/18/2017 Secondary VIKI Parrish Insurance:1500 SIMONSDOB: [facility] MEDICAID [id number] System PRIMARYPolicy Number: [address] Repository Effective [address] Date:2017-11-1958845-5954Lwq: 1424-18-21Wwtu Name:CD:[id number] O (HP)Tel: (000) [address], [place] 000-0000 (WP) [address]MP: 12/05/2017 VIKI M Primary VIKI Parrish SIMONSDOB: Insurance:ANTHEMPolic SIMONSDOB: [facility] y Number: Effective [id number] System [facility] Date:2018-01-13 - [address] Repository [address] 2306-06-06Wbaj [address] [address]Tit: Name:CD:[id number] [address] [address]Rgm: 155[address]TKOJRMG, [place] (HP) [address]MW: 404 (HP) (WP) 12/05/2017 Secondary [facility] Insurance:MedicaidPol SIMONSDOB: [facility] icy Number: Effective [id number] System Date:2017-12-04 - [address] Repository 7334-00-69Whzm [address] Name:CD:[id number] [address]Ked: [facility] [address] [place] (HP)Tel: [phone]: (WP) [phone] 12/05/2017 [facility] SIMONSDOB: Insurance:AnthemPolic SIMONSDOB: Hospitals y Number: [id number] Repository [address] [id number] [address] Date:Plan Name:Health [address] [id number]: [id number]: (HP) (HP) 12/05/2017 Secondary [facility] Insurance:MedicaidPol SIMONSDOB: Hospitals icy Number: [id number] Repository [id number] [address] Date:Plan [address] Name:[facility] [id number]: [address], [place] [address]XR: (800) (HP) [id number] 11/19/2017 [facility] SIMONSDOB: Insurance:1500 SIMONSDOB: [facility] MEDICARE [id number] System [address] PRIMARYPolicy Number: [address] Repository [address] Effective [address] [address]Laf: Date:2017-10-22 [address]Xjm: 8620-59-95Hoam (HP) Name:CD:[id number] O (HP)Tel: (000) [address]HDUAEOYPP, 000-0000 (WP) [place] [address]EL: 11/19/2017 Secondary VIKI Parrish Insurance:1500 SIMONSDOB: [facility] MEDICAID [id number] System PRIMARYPolicy Number: [facility] Repository Effective [address] Date:2017-10-22 [address]Awp: 1073-45-03Wzqt Name:CD:[id number] O (HP)Tel: (000) [address] [place] [place] 000-0000 (WP) [address]OZ: 10/28/2017 [facility] Primary VIKI Parrish SIMONSDOB: Insurance:MedicarePol SIMONSDOB: [facility] icy Number: Effective [id number] System [facility] Date:2017-09-11 - [facility] Repository [address] 0071-13-96Rtip [address] [address]Sov: Name:CD:[id number] [address]Fmw: 341564MYGFSBUCWI, [place] (HP) [id number]: (800) (HP) 000-0000 (WP) 10/28/2017 Secondary VIKI Parrish Insurance:MedicaidPol [facility]: [facility] icy Number: Effective [id number] System Date:2017-09-11 - [address] Repository 0830-83-33Okvr [address] Name:CD:[id number] E [id number]: [address] [place] (HP)Tel: (000) [phone]: (WP) [phone] 10/22/2017 VIKI Parker Primary VIKI Parrish SIMONSDOB: Insurance:1500 SIMONSDOB: [facility] MEDICARE [id number] System [facility] PRIMARYPolicy Number: [address] Repository [address] Effective [address] [address]Uuk: Date:2017-10-22 [id number]: 6414-34-56Kpeu (HP) Name:CD:[id number] O (HP)Tel: (000) [address]UBNRYJWAF, 000-0000 (WP) [place] [address]RK: 10/22/2017 Secondary VIKI Parrish Insurance:1500 SIMONSDOB: [facility] MEDICAID [id number] System PRIMARYPolicy Number: [address] Repository Effective [address] Date:2017-10-22 [id number]: 1971-41-67Dxoc Name:CD:[id number] O (HP)Tel: (000) [address], [place] 000-0000 (WP) [address]YM: 10/07/2017 VIKI Parker Primary VIKI Parrish SIMONSDOB: Insurance:1500 SIMONSDOB: [facility] MEDICARE [id number] System [facility] PRIMARYPolicy Number: [address] Repository [address] Effective [address], [place] [id number]: Date:2017-09-10 [id number]: 6910-74-81Ltga (HP) Name:CD:[id number] O (HP)Tel: (000) [address]SSYTUOU[address], 000-0000 (WP) [place] [address]VH: 10/07/2017 Secondary VIKI Parrish Insurance:1500 SIMONSDOB: [facility] MEDICAID [id number] System PRIMARYPolicy Number: [address] Repository Effective [address] Date:2017-09-10 - [id number]: 1182-70-91Uufh Name:CD:[id number] O (HP)Tel: 000) [address], [place] 000-0000 (WP) [address]ZT: 09/10/2017 VIKI Parker Primary VIKI Parrish SIMONSDOB: Insurance:MedicarePol SIMONSDOB: [facility] icy Number: Effective [id number] System [address] Date:2017-09-10 - [address] Repository [address] 3859-00-86Hnvj [address] [address]Iyx: Name:CD:[id number] [address]Lbk: 071807PBHDAAHGCT, [place] (HP) [phone]: (800) (HP) 000-0000 (WP) 09/10/2017 Secondary VIKI Parrish Insurance:MedicaidPol [place]YN[place]SDOB: [facility] icy Number: Effective [id number] System Date:2017-09-10 - [address] Repository 8906-99-55Atlb [address] Name:CD:[id number] E [id number]: [facility] [address] [place] (HP)Tel: 000) [phone]: (WP) [phone] 09/10/2017 VIKI Parker Primary VIKI Parrish SIMONSDOB: Insurance:[facility] SIMONSDOB: [facility] MEDICARE [id number] [address] PRIMARYPolicy Number: [address] Repository [address] Effective [address] [id number]: Date:2017-09-10 - [id number]: 8548-68-92Rntl (HP) Name:CD:[id number] O (HP)Tel: (000) [address]EZZOPAU[address], 000-0000 (WP) [place] [address]OQ: 09/10/2017 Secondary VIKI Parrish Insurance:1500 SIMONSDOB: [facility] MEDICAID [id number] System PRIMARYPolicy Number[facility] Repository Effective [address] Date:2017-09-10 - [id number]: 9290-51-30Pptw Name:CD:[id number] O (HP)Tel: (000) [address] 000-0000 (WP) [address]GY: 09/08/2017 Viki Parker Primary Viki Funk [id number] Insurance:MEDICARE SimonsDOB: Community [address] PART A BPolicy [id number] Hospital [address]Qhm: (567) Number: Repository [id number] () [id number] Date:2017-09-08 09/08/2017 Secondary Viki Funk Insurance:MEDICAIDPol SimonsDOB: Community icy Number: [id number] [id number] Repository Date:2017-09-08 09/08/2017 Tertiary NOT [place]IV[place]UNK [place] Insurance:SELF PAY [facility] Number: Effective Repository Date:2017-09-08 09/04/2017 VIKI Parker Primary VIKI Parrish SIMONSDOB: Insurance:MedicarePol SIMONSDOB: [facility] icy Number: Effective [id number] System [address] Date:2017-07-11 - [address] Repository [address] 8638-48-17Rgwk [address], [place] [address]Vun: Name:CD:[id number] [address]Eif: [id number], [place] (HP) [phone]: (800) (HP) 000-0000 (WP) 09/04/2017 Secondary VIKI Taylortan Insurance:MedicaidPol SIMONSDOB: [facility] icy Number: Effective [id number] System Date:2017-07-11 [facility] Repository 8998-88-60Iqmu [address] Name:CD:[id number] E [id number]: [facility] [address] [place], [place] ()Tel: (294) [phone]: (wp) [phone]
== END ==
PROVIDERS: Family Provider Internal Medicine; PCP Internal Medicine; Referring Provider Anesthesiology Pain Medicine; Visit Provider Anesthesiology Pain Medicine
DX: F11.20 Opioid dependence, uncomplicated (principal)
CPT/HCPCS: 80307

== ENCOUNTER → 2018-10-05 14:25 | Outpatient (CLI) | payer MEDICARE, MEDICAID, SELFPAY ==
--- NOTE | 2018-10-05 14:50 | RAD_ITS ---
STUDY: X-RAY - THORACIC SPINE REASON FOR EXAM: Female, 53 years old. Back pain TECHNIQUE: 3 view(s) of the thoracic spine were obtained. COMPARISON: None. FINDINGS: Normal kyphosis of the thoracic spine. There is no substantial scoliosis. Normal thoracic vertebrae and endplates. Normal disc space heights. The soft tissue structures are unremarkable. RAD/Thoracic Spine 3 Views IMPRESSION: Normal x-ray examination of the thoracic spine. Electronically Signed: Will Strong MD at 7:43 EDT , Service support ,
== END ==
PROVIDERS: Family Provider Internal Medicine; PCP Internal Medicine; Referring Provider Anesthesiology Pain Medicine; Visit Provider Anesthesiology Pain Medicine
DX: M54.9 Dorsalgia, unspecified (principal)
CPT/HCPCS: 72072

== ENCOUNTER → 2018-12-28 12:00 | Outpatient (CLI) | payer MEDICARE, MEDICAID, SELFPAY ==
[2018-12-28 12:50] LABS: Amphetamine Urine VISTA NEGATIVE (<1000 ng/mL); Barbiturate Urine VISTA NEGATIVE (< 200 ng/mL); Benzodiazepine Urine VISTA NEGATIVE (< 200 ng/mL); Cocaine Urine VISTA NEGATIVE (< 300 ng/mL); Ecstacy Urine VISTA POSITIVE (< 500 ng/mL); Methadone Urine VISTA NEGATIVE (< 300 ng/mL); PCP Urine VISTA NEGATIVE (< 25 ng/mL); THC Urine VISTA NEGATIVE (< 50 ng/mL); Vista UDS pH Range 5
== END ==
PROVIDERS: Family Provider Internal Medicine; PCP Internal Medicine; Referring Provider Anesthesiology Pain Medicine; Visit Provider Anesthesiology Pain Medicine
DX: F11.20 Opioid dependence, uncomplicated (principal)
CPT/HCPCS: 80307

== ENCOUNTER → 2019-06-01 10:50 | Outpatient (CLI) | payer MEDICARE, MEDICAID, SELFPAY ==
--- NOTE | 2019-06-01 11:03 | RAD_ITS ---
STUDY: X-RAY - RIGHT KNEE REASON FOR EXAM: Anterior knee pain for about 2 weeks, no specific injury. TECHNIQUE: 4 view(s) of the knee. COMPARISON: None. FINDINGS: There is osteopenia. Normal visualized distal femur. Normal visualized proximal tibia and fibula. Normal proximal tibiofibular articulation. Normal medial femorotibial compartment. Normal lateral femorotibial compartment. There is mild joint space narrowing of the patellofemoral articulation. The soft tissue structures are unremarkable. RAD/Knee 4 or More Views IMPRESSION: Mild patellofemoral arthrosis. Electronically Signed: Gage Fink MD at 13:12 EST Tel , Service support ,
== END ==
PROVIDERS: Family Provider Internal Medicine; PCP Internal Medicine; Referring Provider Anesthesiology Pain Medicine; Visit Provider Anesthesiology Pain Medicine
DX: M25.561 Pain in right knee (principal)
CPT/HCPCS: 73564

== ENCOUNTER → 2019-07-02 13:16 | Outpatient (CLI) | payer MEDICARE, MEDICAID, SELFPAY ==
--- NOTE | 2019-07-02 13:20 | RAD_ITS ---
STUDY: X-RAY - LUMBAR SPINE REASON FOR EXAM: Female, 53 years old. CHRONIC BACK PAIN, NKI TECHNIQUE: 3 view(s) of the lumbar spine were obtained. COMPARISON: None FINDINGS: Normal lumbar lordosis. There is no substantial scoliosis. There is a normal alignment of the vertebrae. There is multilevel endplate spondylosis of the lumbar vertebrae. There is mild multi-level degenerative disc disease with multi-level disc space narrowing. There are surgical clips within the right upper quadrant consistent with prior cholecystectomy. RAD/Lumbar Spine 2 or 3 Views IMPRESSION: Degenerative changes of the spine, as detailed above. Electronically Signed: Sera Ng MD at 14:13 EST Tel , Service support ,
--- NOTE | 2019-07-02 13:20 | RAD_ITS ---
STUDY: X-RAY - THORACIC SPINE REASON FOR EXAM: Female, 53 years old. CHRONIC BACK PAIN, NKI TECHNIQUE: 3 view(s) of the thoracic spine were obtained. COMPARISON: October 05, 2018 FINDINGS: Normal kyphosis of the thoracic spine. There is no substantial scoliosis. Normal thoracic vertebrae and endplates. Normal disc space heights. The soft tissue structures are unremarkable. RAD/Thoracic Spine 3 Views IMPRESSION: Within normal limits x-ray examination of the thoracic spine. Electronically Signed: Sera Ng MD at 18:43 EST Tel , Service support ,
== END ==
PROVIDERS: Family Provider Internal Medicine; PCP Internal Medicine; Referring Provider Anesthesiology Pain Medicine; Visit Provider Anesthesiology Pain Medicine
DX: M54.9 Dorsalgia, unspecified (principal)
CPT/HCPCS: 72072; 72100

== ENCOUNTER → 2019-09-13 10:08 | Outpatient (CLI) | payer MEDICARE, MEDICAID, SELFPAY ==
[2019-09-13 11:38] LABS: Amphetamine Urine VISTA NEGATIVE (<1000 ng/mL); Barbiturate Urine VISTA NEGATIVE (< 200 ng/mL); Benzodiazepine Urine VISTA NEGATIVE (< 200 ng/mL); Cocaine Urine VISTA NEGATIVE (< 300 ng/mL); Ecstacy Urine VISTA POSITIVE (< 500 ng/mL); Methadone Urine VISTA NEGATIVE (< 300 ng/mL); PCP Urine VISTA NEGATIVE (< 25 ng/mL); THC Urine VISTA NEGATIVE (< 50 ng/mL); Vista UDS pH Range 6
== END ==
PROVIDERS: PCP Internal Medicine; Referring Provider Anesthesiology Pain Medicine; Visit Provider Anesthesiology Pain Medicine
DX: F11.20 Opioid dependence, uncomplicated (principal)
CPT/HCPCS: 80307

== ENCOUNTER → 2020-06-27 12:36 | Outpatient (CLI) | payer MEDICARE, MEDICAID, SELFPAY ==
[2020-06-27 13:15] LABS: BUP Internal Control LINE = VALID (VALID); Buprenorphine Drug Screen Positive (<10 ng/mL)
[2020-06-27 13:21] LABS: Amphetamine Urine VISTA NEGATIVE (<1000 ng/mL); Barbiturate Urine VISTA NEGATIVE (< 200 ng/mL); Benzodiazepine Urine VISTA NEGATIVE (< 200 ng/mL); Cocaine Urine VISTA NEGATIVE (< 300 ng/mL); Ecstacy Urine VISTA POSITIVE (< 500 ng/mL); Methadone Urine VISTA NEGATIVE (< 300 ng/mL); PCP Urine VISTA NEGATIVE (< 25 ng/mL); THC Urine VISTA POSITIVE (< 50 ng/mL); Vista UDS pH Range 5
== END ==
PROVIDERS: PCP Internal Medicine; Referring Provider Anesthesiology Pain Medicine; Visit Provider Anesthesiology Pain Medicine
DX: F11.20 Opioid dependence, uncomplicated (principal)
CPT/HCPCS: 80307

== ENCOUNTER → 2020-07-24 11:07 | Outpatient (CLI) | payer MEDICARE, MEDICAID, SELFPAY ==
[2020-07-24 12:36] LABS: Amphetamine Urine VISTA NEGATIVE (<1000 ng/mL); Barbiturate Urine VISTA NEGATIVE (< 200 ng/mL); Benzodiazepine Urine VISTA NEGATIVE (< 200 ng/mL); Cocaine Urine VISTA NEGATIVE (< 300 ng/mL); Ecstacy Urine VISTA POSITIVE (< 500 ng/mL); Methadone Urine VISTA NEGATIVE (< 300 ng/mL); PCP Urine VISTA NEGATIVE (< 25 ng/mL); THC Urine VISTA POSITIVE (< 50 ng/mL); Vista UDS pH Range 6
== END ==
PROVIDERS: PCP Internal Medicine; Referring Provider Anesthesiology Pain Medicine; Visit Provider Anesthesiology Pain Medicine
DX: F11.20 Opioid dependence, uncomplicated (principal)
CPT/HCPCS: 80307

== ENCOUNTER → 2020-08-14 10:21 | Outpatient (CLI) | payer MEDICARE, MEDICAID, SELFPAY ==
--- NOTE | 2020-08-14 10:25 | RAD_ITS ---
STUDY: X-RAY - CERVICAL SPINE REASON FOR EXAM: Female, 54 years old. PAIN THAT RADIATES TO RIGHT ARM/ ELBOW TECHNIQUE: 3 view(s) of the cervical spine were obtained. COMPARISON: Comparison is made with prior study of 09/08/2017. FINDINGS: Normal anterior atlantoaxial articulation. Normal odontoid process. There is straightening of the normal cervical lordosis. Minimal disc space narrowing and spondylosis at the C5-C6 level. Normal visualized intervertebral neuroforamina. The soft tissue structures are unremarkable. RAD/Cerv Spine 2 or 3 Views IMPRESSION: Straightening of the normal cervical lordosis. Minimal disc space narrowing and spondylosis at the C5-C6 level. Electronically Signed: Urbano Norman MD at 12:44 EST , Service support ,
== END ==
PROVIDERS: PCP Internal Medicine; Visit Provider Anesthesiology Pain Medicine
DX: M54.12 Radiculopathy, cervical region (principal); M79.601 Pain in right arm
CPT/HCPCS: 72040

== ENCOUNTER → 2020-12-28 10:11 | Outpatient (CLI) | payer MEDICARE, MEDICAID, SELFPAY ==
--- NOTE | 2020-12-28 10:21 | MRI_ITS ---
STUDY: MRI LUMBAR SPINE WITHOUT CONTRAST REASON FOR EXAM: Female, 55 years old. BACK AND LEG PAIN TECHNIQUE: Standardized fat and water weighted pulse sequences were obtained in the sagittal and axial planes. COMPARISON: 10/03/2016 FINDINGS: T12-L1: Normal endplates. Normal disc height, hydration and morphology. Normal bilateral facet joints. Normal central canal and bilateral lateral recesses. Normal bilateral intervertebral neural foramina. Normal lumbar lordosis. There is no substantial scoliosis. Normal conus medullaris that terminates at the L1. L1-2: Normal endplates. Normal disc height, hydration and morphology. Normal bilateral facet joints. Normal central canal and bilateral lateral recesses. Normal bilateral intervertebral neural foramina. L2-3: Normal endplates. Normal disc height, hydration and morphology. Normal bilateral facet joints. Normal central canal and bilateral lateral recesses. Normal bilateral intervertebral neural foramina. L3-4: Normal endplates. Normal disc height, hydration and morphology. Normal bilateral facet joints. Normal central canal and bilateral lateral recesses. Normal bilateral intervertebral neural foramina. L4-5: No change in the disc desiccation with bilateral foraminal annular tears but no disc protrusion, spinal stenosis, or neural foraminal stenosis. L5-S1: Some disc desiccation but no disc protrusion, spinal stenosis, or neural foraminal stenosis. Normal visualized sacral ala. Normal visualized paraspinous soft tissue structures. MRI/Spine Lumbar (Routine) IMPRESSION: No change from 10/03/2016. Electronically Signed: Nathan Knutson MD at 12:15 EDT Tel , Service support ,
== END ==
PROVIDERS: PCP Internal Medicine; Referring Provider Anesthesiology Pain Medicine; Visit Provider Anesthesiology Pain Medicine
DX: M51.16 Intervertebral disc disorders with radiculopathy, lumbar region (principal); M51.17 Intervertebral disc disorders with radiculopathy, lumbosacral region
CPT/HCPCS: 72148

== ENCOUNTER → 2021-04-05 09:53 | Outpatient (CLI) | payer MEDICARE, MEDICAID, SELFPAY ==
[2021-04-05 11:13] LABS: Amphetamine Urine VISTA NEGATIVE (<1000 ng/mL); Barbiturate Urine VISTA NEGATIVE (< 200 ng/mL); Benzodiazepine Urine VISTA NEGATIVE (< 200 ng/mL); Cocaine Urine VISTA NEGATIVE (< 300 ng/mL); Ecstacy Urine VISTA POSITIVE (< 500 ng/mL); Methadone Urine VISTA NEGATIVE (< 300 ng/mL); PCP Urine VISTA NEGATIVE (< 25 ng/mL); THC Urine VISTA POSITIVE (< 50 ng/mL); Vista UDS pH Range 5
== END ==
PROVIDERS: PCP Internal Medicine; Referring Provider Anesthesiology Pain Medicine; Visit Provider Anesthesiology Pain Medicine
DX: F11.20 Opioid dependence, uncomplicated (principal)
CPT/HCPCS: 80307

== ENCOUNTER → 2021-05-11 11:02 | Outpatient (CLI) | payer MEDICARE, MEDICAID, SELFPAY ==
--- NOTE | 2021-05-11 11:05 | RAD_ITS ---
STUDY: X-RAY - THORACIC SPINE REASON FOR EXAM: Female, 55 years old. Mid back pain TECHNIQUE: 3 view(s) of the thoracic spine were obtained. COMPARISON: None. FINDINGS: Normal kyphosis of the thoracic spine. There is a mild dextroscoliosis Normal thoracic vertebrae and endplates. Normal disc space heights. The soft tissue structures are unremarkable. RAD/Thoracic Spine 3 Views IMPRESSION: Mild dextroscoliosis, no fracture or suspicious osseous lesion Electronically Signed: Ferny Ren MD at 14:56 EST , Service support ,
== END ==
PROVIDERS: PCP Internal Medicine; Referring Provider Anesthesiology Pain Medicine; Visit Provider Anesthesiology Pain Medicine
DX: M54.9 Dorsalgia, unspecified (principal)
CPT/HCPCS: 72072

== ENCOUNTER → 2022-01-30 | Outpatient (CLI) | payer MEDICARE, MEDICAID, SELFPAY ==
[2022-01-30 12:54] LABS: Amphetamine Urine VISTA NEGATIVE (<1000 ng/mL); Barbiturate Urine VISTA NEGATIVE (< 200 ng/mL); Benzodiazepine Urine VISTA NEGATIVE (< 200 ng/mL); Cocaine Urine VISTA NEGATIVE (< 300 ng/mL); Ecstacy Urine VISTA POSITIVE (< 500 ng/mL); Methadone Urine VISTA NEGATIVE (< 300 ng/mL); PCP Urine VISTA NEGATIVE (< 25 ng/mL); THC Urine VISTA POSITIVE (< 50 ng/mL); Vista UDS pH Range 6
== END | disposition home or self-care (01) ==
LOC: LAB 11:14
PROVIDERS: PCP Internal Medicine; Referring Provider Anesthesiology Pain Medicine; Visit Provider Anesthesiology Pain Medicine
DX: F11.20 Opioid dependence, uncomplicated (principal)
CPT/HCPCS: 80307